=== PATIENT | male | born 1945 | race Caucasian/White ===

== ENCOUNTER → 2016-09-11 | Outpatient (REF) | payer MEDICARE, OTHER ==
[~2016-09-11] MED LIST: ASPI-345 PO; LISI1TAB8 PO; SIMV40TA2 PO
[2016-09-11 10:33] LABS: ANION GAP 18.6 MEQ/L (3-15)
== END ==
LOC: LAB 09:36
PROVIDERS: ATTEND Family Medicine
DX: I10 Essential (primary) hypertension (principal); Z11.59 Encounter for screening for other viral diseases
CPT/HCPCS: 80048; 86803